=== PATIENT | male | born 1990 | race Caucasian/White ===

== ENCOUNTER 2021-08-18 02:59 | Inpatient (IN) | payer OTHER ==
[2021-08-18 03:29] VITALS: BMI 11.6
[2021-08-18] MEDS ORDERED: ACETAMINOPHEN 1000 MG/100 ML BAG IVPB ONE (03:35)
[2021-08-18] MEDS ORDERED: SODIUM CHLORIDE 0.9% 500 ML INFUS.BAG IV ONE (03:35)
[2021-08-18] MEDS ORDERED: ACETAMINOPHEN INJECTION 100 ML IVPB ONE (03:47)
[2021-08-18 04:09] LABS: HEMOGLOBIN 12.1 GM/dL (11.7-16.9); RBC 4.05 M/mm3 (4.00-5.60); VENOUS BASE EXCESS 3.8 mmol/L (-2-2); VENOUS O2 SATURATION 99.3 % (70-80); VENOUS PCO2 33.7 mmHg (38-52); VENOUS PH 7.514 (7.310-7.410); WHITE BLOOD COUNT 12.3 K/mm3 (4.0-10.0)
[2021-08-18 04:10] LABS: HEMATOCRIT 36.5 % (35.4-49); MCH 29.9 pg (25.7-33.7); MCHC 33.2 g/dl (32.0-35.9); MEAN CELL VOLUME 90.1 fl (80-96); MEAN PLT VOLUME 6.8 fl (7.5-11.1); PLATELET COUNT 219 10^3/uL (134-434); RDW 13.1 % (11.9-15.9)
[2021-08-18 04:18] LABS: INR 1.26 (0.83-1.09); PROTHROMBIN TIME (PATIENT) 14.8 SEC (9.7-13.0)
[2021-08-18 04:20] LABS: ACTIVATED PTT 29.4 SECONDS (25.2-36.5)
[2021-08-18] MEDS ORDERED: PIPERACILLIN/TAZOB 4.5 GM 4.5 GM in DEXTROSE 5%-WATER 100 ML IVPB ONE (04:22)
[2021-08-18] MEDS ORDERED: VANCOMYCIN 1 GM in D5W (PRE-DOCKED) 1,000 MG/250 ML IVPB ONE (04:22)
[2021-08-18 04:36] LABS: PH,URINE 5.5 (5.0-8.0); URINE APPEARANCE CLEAR; URINE BILIRUBIN NEGATIVE (NEGATIVE); URINE COLOR YELLOW; URINE GLUCOSE (UA) NEGATIVE (NEGATIVE); URINE KETONE 4+ (NEGATIVE); URINE LEUK ESTERASE NEGATIVE (NEGATIVE); URINE NITRITE NEGATIVE (NEGATIVE); URINE PROTEIN TRACE (NEGATIVE); URINE UROBILINOGEN 0.2 mg/dL (0.2-1.0)
[2021-08-18 04:37] LABS: CHLORIDE 98 mmol/L (98-107); SODIUM 136 mmol/L (136-145)
[2021-08-18 04:39] LABS: ALBUMIN 3.3 g/dl (3.4-5.0); ANION GAP 13 MMOL/L (8-16); BLOOD UREA NITROGEN 8.7 mg/dL (7-18); CALCIUM 8.9 mg/dL (8.5-10.1); CO2 26 mmol/L (21-32); GLUCOSE,RANDOM 104 mg/dL (74-106)
[2021-08-18 04:42] LABS: BILIRUBIN,DIRECT 0.2 mg/dL (0.0-0.2); SGOT/AST 39 U/L (15-37); SGPT/ALT 23 U/L (13-61)
[2021-08-18 04:43] LABS: BILIRUBIN,TOTAL 0.6 mg/dL (0.2-1); LDH 212 U/L (87-246); TOT PROT 7.6 g/dl (6.4-8.2)
[2021-08-18 04:45] LABS: ALK PHOS 58 U/L (45-117)
[2021-08-18] MEDS ORDERED: POTASSIUM CHLORIDE TABS 20 MEQ TABLET.ER (FP) PO ONE (04:53)
[2021-08-18] MEDS ORDERED: PIPERACILLIN/TAZOB 4.5 GM 4.5 GM/100 ML BAG IVPB ONE (04:55)
[2021-08-18] MEDS ORDERED: VANCOMYCIN 1 GRAM (PRE-DOCKED) 1,000 MG/250 ML BAG IVPB ONE (05:30)
[2021-08-18] MEDS ORDERED: ACETAMINOPHEN 325 MG TABLET (FP) PO PRN (08:02)
[2021-08-18 08:23] LABS: ANISOCYTOSIS 2+; MACROCYTOSIS 0; OVALOCYTE 1+; PLATELET ESTIMATE NORMAL
[2021-08-18] MEDS ORDERED: AZITHROMYCIN IVPB 500 MG/250 ML BAG IVPB ONE (09:16)
[2021-08-18] MEDS ORDERED: ACETAMINOPHEN 325 MG TABLET (FP) ONE (09:16)
[2021-08-18] MEDS ORDERED: CEFTRIAXONE 1 GM/50 ML BAG ONE (09:16)
[2021-08-18 09:36] LABS: CREATININE < 0.2 mg/dL (0.55-1.3)
[2021-08-18] MEDS: CEFTRIAXONE 1 GM in DEXTROSE 5%-WATER - 50 ML IVPB SCH (09:39)
[2021-08-18] MEDS: AZITHROMYCIN IVPB 500 MG/250 ML BAG IVPB SCH (10:06)
[2021-08-18] MEDS ORDERED: DEXAMETHASONE SOD PHOSPHATE 4 MG/1 ML VIAL ONE (10:52)
[2021-08-18] MEDS: DEXAMETHASONE SOD PHOSPHATE 10 MG/1 ML VIAL IVPUSH SCH (10:58)
[2021-08-18 13:25] LABS: MAGNESIUM 1.6 mg/dL (1.8-2.4)
[2021-08-18] MEDS ORDERED: POTASSIUM CHLORIDE ORAL LIQUID 20 MEQ/15 ML PO ONE (14:30)
[2021-08-18] MEDS ORDERED: MAGNESIUM SULF 50% (8.12 MEQ/2 ML-1 GM VIAL) IVPB ONE (14:30)
[2021-08-18] MEDS ORDERED: ENOXAPARIN NA (PORCINE) 30 MG/0.3 ML DISP.SYRIN SQ ONE (14:42)
[2021-08-18] MEDS ORDERED: MAGNESIUM 1GM/D5W - 1 GM/100 ML IVPB IVPB ONE (14:42)
[2021-08-18] MEDS: ENOXAPARIN NA (PORCINE) 30 MG/0.3 ML DISP.SYRIN SQ SCH (14:56)
[2021-08-18] MEDS ORDERED: REMDESIVIR 200 MG in SODIUM CHLORIDE 250 ML IVPB ONE (15:00)
[2021-08-18] MEDS ORDERED: POTASSIUM CHLORIDE ORAL LIQUID 20 MEQ/15 ML ONE (15:21)
[2021-08-18] MEDS ORDERED: KCL 10 MEQ IVPB 10 MEQ/100 ML INFUS.BAG IVPB ONE ×2 (16:35→17:51)
[2021-08-18] MEDS: KCL 10 MEQ IVPB 10 MEQ/100 ML INFUS.BAG IVPB SCH ×3 (16:50→20:36)
[2021-08-19] MEDS ORDERED: DEXTROSE 5%-WATER - 50 ML IVPB ONE (09:17)
[2021-08-19] MEDS ORDERED: cefTRIAXone SODIUM 1 GM VIAL ONE (09:17)
[2021-08-19] MEDS: DEXAMETHASONE SOD PHOSPHATE 10 MG/1 ML VIAL IVPUSH SCH (09:23)
[2021-08-19] MEDS: PANTOPRAZOLE 40 MG TABLET PO SCH (09:24)
[2021-08-19] MEDS: ENOXAPARIN NA (PORCINE) 30 MG/0.3 ML DISP.SYRIN SQ SCH (09:24)
[2021-08-19] MEDS: CEFTRIAXONE 1 GM in DEXTROSE 5%-WATER - 50 ML IVPB SCH (09:24)
[2021-08-19] MEDS: AZITHROMYCIN IVPB 500 MG/250 ML BAG IVPB SCH (10:24)
[2021-08-19 11:10] LABS: CHLORIDE 101 mmol/L (98-107); SODIUM 138 mmol/L (136-145)
[2021-08-19 11:11] LABS: HEMATOCRIT 38.3 % (35.4-49); HEMOGLOBIN 12.2 GM/dL (11.7-16.9); LYMPH % 12.3 % (8-40); MCH 29.2 pg (25.7-33.7); MEAN CELL VOLUME 91.3 fl (80-96); MEAN PLT VOLUME 7.3 fl (7.5-11.1); MONO % 6.8 % (3.8-10.2); NEUT % 80.9 % (42.8-82.8); PLATELET COUNT 316 10^3/uL (134-434); RBC 4.19 M/mm3 (4.00-5.60); RDW 13.8 % (11.9-15.9); WHITE BLOOD COUNT 9.4 K/mm3 (4.0-10.0)
[2021-08-19 11:13] LABS: ALBUMIN 2.8 g/dl (3.4-5.0); ANION GAP 11 MMOL/L (8-16); BLOOD UREA NITROGEN 12.1 mg/dL (7-18); CALCIUM 8.9 mg/dL (8.5-10.1); CO2 26 mmol/L (21-32); GLUCOSE,RANDOM 122 mg/dL (74-106)
[2021-08-19 11:16] LABS: SGOT/AST 56 U/L (15-37); SGPT/ALT 39 U/L (13-61)
[2021-08-19 11:18] LABS: BILIRUBIN,TOTAL 0.3 mg/dL (0.2-1); LDH 219 U/L (87-246)
[2021-08-19 11:19] LABS: ALK PHOS 56 U/L (45-117)
[2021-08-19 11:26] LABS: CREATININE < 0.2 mg/dL (0.55-1.3)
[2021-08-19] MEDS ORDERED: REMDESIVIR 100 MG in SODIUM CHLORIDE 250 ML IVPB SCH (15:00)
[2021-08-20 09:06] LABS: HEMATOCRIT 37.3 % (35.4-49); HEMOGLOBIN 12.1 GM/dL (11.7-16.9); LYMPH % 17.6 % (8-40); MCH 29.6 pg (25.7-33.7); MCHC 32.5 g/dl (32.0-35.9); MEAN CELL VOLUME 91.1 fl (80-96); MEAN PLT VOLUME 7.1 fl (7.5-11.1); MONO % 10.4 % (3.8-10.2); PLATELET COUNT 299 10^3/uL (134-434); RBC 4.09 M/mm3 (4.00-5.60); RDW 13.7 % (11.9-15.9); WHITE BLOOD COUNT 6.2 K/mm3 (4.0-10.0)
[2021-08-20 09:17] LABS: CHLORIDE 101 mmol/L (98-107); SODIUM 138 mmol/L (136-145)
[2021-08-20 09:21] LABS: ALBUMIN 2.9 g/dl (3.4-5.0); ANION GAP 10 MMOL/L (8-16); BLOOD UREA NITROGEN 15.6 mg/dL (7-18); CO2 28 mmol/L (21-32); GLUCOSE,RANDOM 80 mg/dL (74-106)
[2021-08-20 09:24] LABS: SGOT/AST 28 U/L (15-37); SGPT/ALT 30 U/L (13-61)
[2021-08-20 09:26] LABS: BILIRUBIN,TOTAL 0.3 mg/dL (0.2-1); TOT PROT 6.6 g/dl (6.4-8.2)
[2021-08-20 09:27] LABS: ALK PHOS 49 U/L (45-117)
[2021-08-20 09:30] LABS: LDH 190 U/L (87-246)
[2021-08-20 09:43] LABS: CREATININE < 0.2 mg/dL (0.55-1.3)
[2021-08-20] MEDS ORDERED: cefTRIAXone SODIUM 1 GM VIAL ONE (09:47)
[2021-08-20] MEDS ORDERED: DEXTROSE 5%-WATER - 50 ML IVPB ONE (09:47)
[2021-08-20] MEDS: ENOXAPARIN NA (PORCINE) 30 MG/0.3 ML DISP.SYRIN SQ SCH (09:49)
[2021-08-20] MEDS: CEFTRIAXONE 1 GM in DEXTROSE 5%-WATER - 50 ML IVPB SCH (09:49)
[2021-08-20] MEDS: DEXAMETHASONE SOD PHOSPHATE 10 MG/1 ML VIAL IVPUSH SCH (09:50)
[2021-08-20] MEDS: PANTOPRAZOLE 40 MG TABLET PO SCH (10:09)
[2021-08-20] MEDS: REMDESIVIR 100 MG in SODIUM CHLORIDE 250 ML IVPB SCH (10:22)
[2021-08-20] MEDS: AZITHROMYCIN IVPB 500 MG/250 ML BAG IVPB SCH (11:33)
[2021-08-21 10:03] LABS: HEMATOCRIT 42.8 % (35.4-49); HEMOGLOBIN 14.2 GM/dL (11.7-16.9); MCH 30.1 pg (25.7-33.7); MCHC 33.2 g/dl (32.0-35.9); MEAN CELL VOLUME 90.8 fl (80-96); MEAN PLT VOLUME 7.1 fl (7.5-11.1); PLATELET COUNT 377 10^3/uL (134-434); RBC 4.71 M/mm3 (4.00-5.60); RDW 13.7 % (11.9-15.9)
[2021-08-21 10:19] LABS: CHLORIDE 99 mmol/L (98-107); SODIUM 138 mmol/L (136-145)
[2021-08-21] MEDS ORDERED: cefTRIAXone SODIUM 1 GM VIAL ONE (10:21)
[2021-08-21] MEDS ORDERED: DEXTROSE 5%-WATER - 50 ML IVPB ONE (10:21)
[2021-08-21] MEDS: DEXAMETHASONE SOD PHOSPHATE 10 MG/1 ML VIAL IVPUSH SCH (10:24)
[2021-08-21] MEDS: CEFTRIAXONE 1 GM in DEXTROSE 5%-WATER - 50 ML IVPB SCH (10:24)
[2021-08-21 10:25] LABS: ALBUMIN 3.4 g/dl (3.4-5.0); ANION GAP 10 MMOL/L (8-16); BLOOD UREA NITROGEN 15.2 mg/dL (7-18); CALCIUM 9.2 mg/dL (8.5-10.1); CO2 29 mmol/L (21-32); MAGNESIUM 1.9 mg/dL (1.8-2.4)
[2021-08-21] MEDS: ENOXAPARIN NA (PORCINE) 30 MG/0.3 ML DISP.SYRIN SQ SCH (10:25)
[2021-08-21 10:26] LABS: GLUCOSE,RANDOM 106 mg/dL (74-106)
[2021-08-21] MEDS: PANTOPRAZOLE 40 MG TABLET PO SCH (10:27)
[2021-08-21 10:29] LABS: BILIRUBIN,TOTAL 0.3 mg/dL (0.2-1); SGOT/AST 28 U/L (15-37); SGPT/ALT 33 U/L (13-61); TOT PROT 7.6 g/dl (6.4-8.2)
[2021-08-21 10:30] LABS: ALK PHOS 58 U/L (45-117)
[2021-08-21 10:32] LABS: LDH 227 U/L (87-246)
[2021-08-21 11:18] LABS: ANISOCYTOSIS 0; MACROCYTOSIS 0; PLATELET ESTIMATE NORMAL; ROULEAU 1+
[2021-08-21] MEDS: AZITHROMYCIN IVPB 500 MG/250 ML BAG IVPB SCH (11:43)
[2021-08-21] MEDS: REMDESIVIR 100 MG in SODIUM CHLORIDE 250 ML IVPB SCH (13:25)
[2021-08-21 14:44] LABS: CREATININE < 0.2 mg/dL (0.55-1.3)
[2021-08-21] MEDS ORDERED: POTASSIUM CHLORIDE TABS 20 MEQ TABLET.ER (FP) PO ONE (16:57)
[2021-08-22] MEDS ORDERED: PT OWN MED DRAWER 7, Y5N ONE (08:03)
[2021-08-22] MEDS: REMDESIVIR 100 MG in SODIUM CHLORIDE 250 ML IVPB SCH (09:30)
[2021-08-22] MEDS: PANTOPRAZOLE 40 MG TABLET PO SCH (09:32)
[2021-08-22 09:37] LABS: HEMATOCRIT 34.8 % (35.4-49); HEMOGLOBIN 11.4 GM/dL (11.7-16.9); LYMPH % 27.7 % (8-40); MCH 29.8 pg (25.7-33.7); MCHC 32.9 g/dl (32.0-35.9); MEAN CELL VOLUME 90.7 fl (80-96); MEAN PLT VOLUME 7.1 fl (7.5-11.1); MONO % 18.2 % (3.8-10.2); NEUT % 54.1 % (42.8-82.8); PLATELET COUNT 288 10^3/uL (134-434); RBC 3.84 M/mm3 (4.00-5.60); RDW 13.4 % (11.9-15.9); WHITE BLOOD COUNT 3.6 K/mm3 (4.0-10.0)
[2021-08-22 10:00] LABS: CHLORIDE 103 mmol/L (98-107); SODIUM 140 mmol/L (136-145)
[2021-08-22] MEDS ORDERED: APIXABAN 2.5 MG TABLET PO SCH (10:00)
[2021-08-22] MEDS ORDERED: DEXAMETHASONE 4 MG TABLET (FP) PO SCH (10:00)
[2021-08-22 10:09] LABS: ANION GAP 9 MMOL/L (8-16); BLOOD UREA NITROGEN 16.5 mg/dL (7-18); CO2 28 mmol/L (21-32); GLUCOSE,RANDOM 71 mg/dL (74-106); MAGNESIUM 1.6 mg/dL (1.8-2.4)
[2021-08-22 10:11] LABS: CALCIUM 8.4 mg/dL (8.5-10.1)
[2021-08-22 10:12] LABS: SGPT/ALT 27 U/L (13-61)
[2021-08-22 10:13] LABS: SGOT/AST 21 U/L (15-37)
[2021-08-22 10:14] LABS: BILIRUBIN,TOTAL 0.4 mg/dL (0.2-1); LDH 170 U/L (87-246); TOT PROT 6.1 g/dl (6.4-8.2)
[2021-08-22 10:15] LABS: ALK PHOS 45 U/L (45-117)
[2021-08-22 10:35] LABS: ALBUMIN 2.5 g/dl (3.4-5.0); CREATININE < 0.2 mg/dL (0.55-1.3)
[2021-08-22] MEDS ORDERED: cefTRIAXone SODIUM 1 GM VIAL ONE (10:39)
[2021-08-22] MEDS ORDERED: DEXTROSE 5%-WATER - 50 ML IVPB ONE (10:39)
[2021-08-22] MEDS: CEFTRIAXONE 1 GM in DEXTROSE 5%-WATER - 50 ML IVPB SCH (10:41)
[2021-08-22 10:51] VITALS: BP 99/45; PULSE 63; TEMP 97.9
[2021-08-22] MEDS: AZITHROMYCIN IVPB 500 MG/250 ML BAG IVPB SCH (11:16)
== END 2021-08-22 14:35 | disposition home or self-care (01) | DRG 137 ==
LOC: JER 02:59 → INTOOBSV 05:30 → JERBED 05:30 → UNDOADMOB 05:30 → JERBED 08:02 → UNDOADMOB 08:02 → OBSVTOIN 11:07 → JERBED 11:07 → INTOOBSV 11:07 → J8W 19:06
PROVIDERS: ADMIT Internal Medicine; ATTEND Nurse Practitioner Acute Care
PROC: XW033E5 Introduction of Remdesivir Anti-infective into Peripheral Vein, Percutaneous Approach, New Technology Group 5 (ICD-10-PCS; principal; 2021-08-18)
DX: U07.1 COVID-19 (principal); E87.3 Alkalosis; E87.6 Hypokalemia; G71.01 Duchenne or Becker muscular dystrophy; J12.82 Pneumonia due to coronavirus disease 2019; M41.9 Scoliosis, unspecified; J96.20 Acute and chronic respiratory failure, unspecified whether with hypoxia or hypercapnia; R53.2 Functional quadriplegia
CPT/HCPCS: 36415; 71045-TC-FY; 80053; 81003; 82248; 82550; 82553; 82728; 82803; 83605; 83615; 83735; 84132; 84484; 85025; 85379; 85610; 85730; 86140; 87040; 87086; 87804; 87807; 87899; 93005; 93010; 99285-25; C9399; C9803; J0131; J1100; U0003; U0005

== ENCOUNTER 2021-08-25 18:13 | Emergency (ER) | payer OTHER ==
[2021-08-25 18:30] VITALS: TEMP 96.9; BMI 11.6
[2021-08-25 18:59] VITALS: BP 105/81; PULSE 64
[2021-08-25] MEDS ORDERED: GLUCAGON 1 MG KIT IM ONE (19:26)
[2021-08-25] MEDS ORDERED: GLUCAGON 1 MG KIT ONE (19:39)
== END 2021-08-25 21:42 | disposition home or self-care (01) ==
LOC: JER 18:13
PROC: 3E023NZ Introduction of Analgesics, Hypnotics, Sedatives into Muscle, Percutaneous Approach (ICD-10-PCS; principal; 2021-08-25)
DX: R09.89 Other specified symptoms and signs involving the circulatory and respiratory systems (principal)
CPT/HCPCS: 71250-TC; 99284-25

== ENCOUNTER 2023-06-24 11:20 | Inpatient (IN) | payer OTHER ==
[2023-06-24 11:39] VITALS: BMI 11.6
[2023-06-24] MEDS ORDERED: SODIUM CHLORIDE 0.9% 500 ML INFUS.BAG IV ONE (15:11)
[2023-06-24 15:38] LABS: BASO % 0.3 % (0-2.0); EOS % 0.1 % (0-4.5); HEMATOCRIT 43.8 % (35.4-49); HEMOGLOBIN 14.4 GM/dL (11.7-16.9); LYMPH % 14.7 % (8-40); MCH 29.4 pg (25.7-33.7); MCHC 32.9 g/dl (32.0-35.9); MEAN CELL VOLUME 89.3 fl (80-96); MEAN PLT VOLUME 6.9 fl (7.5-11.1); MONO % 8.4 % (3.8-10.2); NEUT % 76.5 % (42.8-82.8); PLATELET COUNT 273 10^3/uL (134-434); RBC 4.91 M/mm3 (4.00-5.60); RDW 13.7 % (11.9-15.9); WHITE BLOOD COUNT 13.5 K/mm3 (4.0-10.0)
[2023-06-24 16:56] LABS: ALBUMIN 3.8 g/dl (3.4-5.0); ALK PHOS 50 U/L (45-117); ANION GAP 15 mmol/L (4-13); BILIRUBIN,TOTAL 0.8 mg/dL (0.2-1); BLOOD UREA NITROGEN 17.1 mg/dL (7-18); CALCIUM 9.3 mg/dL (8.5-10.1); CHLORIDE 100 mmol/L (98-107); CO2 23 mmol/L (21-32); CREATININE < 0.2 mg/dL (0.55-1.3); GLUCOSE,RANDOM 68 mg/dL (74-106); POTASSIUM 3.6 mmol/L (3.5-5.1); SGOT/AST 31 U/L (15-37); SGPT/ALT 15 U/L (13-61); SODIUM 137 mmol/L (136-145); TOT PROT 7.8 g/dl (6.4-8.2)
[2023-06-24] MEDS ORDERED: DEXTROSE 50%-WATER 25 GM/50 ML DISP.SYRIN IVPUSH ONE (17:14)
[2023-06-24] MEDS ORDERED: DEXTROSE 50%-WATER 25 GM/50 ML DISP.SYRIN ONE ×2 (17:35→17:50)
[2023-06-24] MEDS ORDERED: CEFTRIAXONE 1 GM/50 ML BAG ONE (19:14)
[2023-06-24] MEDS ORDERED: predniSONE 10 MG TABLET (UD) PO ONE (19:20)
[2023-06-24] MEDS ORDERED: predniSONE 10 MG TABLET (UD) ONE (19:26)
[2023-06-24 19:32] LABS: PH,URINE 6.5 (5.0-8.0); URINE APPEARANCE CLEAR; URINE BILIRUBIN NEGATIVE (NEGATIVE); URINE COLOR YELLOW; URINE GLUCOSE (UA) 3+ (NEGATIVE); URINE KETONE 4+ (NEGATIVE); URINE LEUK ESTERASE NEGATIVE (NEGATIVE); URINE NITRITE NEGATIVE (NEGATIVE); URINE PROTEIN NEGATIVE (NEGATIVE); URINE UROBILINOGEN 0.2 mg/dL (0.2-1.0)
[2023-06-24] MEDS ORDERED: DEXTROSE 5%-NORMAL SALINE 1,000 ML IV SCH (23:30)
[2023-06-25 04:58] VITALS: RESP 20
[2023-06-25] MEDS: PANTOPRAZOLE 40 MG TABLET PO SCH (06:02)
[2023-06-25] MEDS ORDERED: DEXTROSE 5%-NORMAL SALINE 1,000 ML IV SCH (10:30)
[2023-06-25 10:51] LABS: BASO % 0.1 % (0-2.0); HEMATOCRIT 39.1 % (35.4-49); HEMOGLOBIN 12.8 GM/dL (11.7-16.9); LYMPH % 9.5 % (8-40); MCH 29.1 pg (25.7-33.7); MCHC 32.8 g/dl (32.0-35.9); MEAN CELL VOLUME 88.8 fl (80-96); MEAN PLT VOLUME 6.5 fl (7.5-11.1); MONO % 10.4 % (3.8-10.2); PLATELET COUNT 257 10^3/uL (134-434); RDW 13.6 % (11.9-15.9); WHITE BLOOD COUNT 12.9 K/mm3 (4.0-10.0)
[2023-06-25 11:09] LABS: POTASSIUM 3.1 mmol/L (3.5-5.1)
[2023-06-25] MEDS: CEFTRIAXONE 1 GM in DEXTROSE 5%-WATER - 50 ML IVPB SCH (11:10)
[2023-06-25] MEDS: AZITHROMYCIN IVPB 500 MG/250 ML BAG IVPB SCH (11:10)
[2023-06-25] MEDS: ENOXAPARIN NA (PORCINE) 40 MG/0.4 ML DISP.SYRIN SQ SCH (11:10)
[2023-06-25 11:11] LABS: CALCIUM 8.8 mg/dL (8.5-10.1)
[2023-06-25] MEDS: CARVEDILOL 3.125 MG TABLET (FP) PO SCH ×2 (11:11→21:39)
[2023-06-25] MEDS: predniSONE 5 MG TABLET (UD) PO SCH (11:11)
[2023-06-25] MEDS: LOSARTAN POTASSIUM 25 MG TABLET PO SCH (11:11)
[2023-06-25 11:12] LABS: ALBUMIN 3.2 g/dl (3.4-5.0); MAGNESIUM 1.7 mg/dL (1.8-2.4)
[2023-06-25] MEDS: LORATADINE 10 MG TABLET PO SCH (11:12)
[2023-06-25 11:15] LABS: PHOSPHOROUS 2.6 mg/dL (2.5-4.9)
[2023-06-25 11:16] LABS: TOT PROT 6.6 g/dl (6.4-8.2)
[2023-06-25 11:17] LABS: BILIRUBIN,TOTAL 0.6 mg/dL (0.2-1)
[2023-06-25 12:04] LABS: CREATININE 0.2 mg/dL (0.55-1.3)
[2023-06-25] MEDS: KCL 10 MEQ IVPB 10 MEQ/100 ML INFUS.BAG IVPB SCH ×2 (13:23→14:28)
[2023-06-26] MEDS: PANTOPRAZOLE 40 MG TABLET PO SCH (06:47)
[2023-06-26] MEDS ORDERED: predniSONE 10 MG TABLET (UD) PO SCH (10:00)
[2023-06-26] MEDS ORDERED: ACETAMINOPHEN 1000 MG/100 ML BAG IVPB PRN (10:35)
[2023-06-26] MEDS: LOSARTAN POTASSIUM 25 MG TABLET PO SCH (12:37)
[2023-06-26] MEDS: CARVEDILOL 3.125 MG TABLET (FP) PO SCH (12:37)
[2023-06-26] MEDS: LORATADINE 10 MG TABLET PO SCH (12:37)
[2023-06-26] MEDS: CEFTRIAXONE 1 GM in DEXTROSE 5%-WATER - 50 ML IVPB SCH (12:38)
[2023-06-26] MEDS: ENOXAPARIN NA (PORCINE) 40 MG/0.4 ML DISP.SYRIN SQ SCH (12:38)
[2023-06-26] MEDS: AZITHROMYCIN IVPB 500 MG/250 ML BAG IVPB SCH (12:38)
[2023-06-26 12:48] LABS: HEMOGLOBIN 11.7 GM/dL (11.7-16.9); MCH 29.9 pg (25.7-33.7); MCHC 33.3 g/dl (32.0-35.9); MEAN CELL VOLUME 89.7 fl (80-96); MEAN PLT VOLUME 7.2 fl (7.5-11.1); PLATELET COUNT 271 10^3/uL (134-434); RDW 13.9 % (11.9-15.9); WHITE BLOOD COUNT 10.4 K/mm3 (4.0-10.0)
[2023-06-26 13:09] LABS: CHLORIDE 100 mmol/L (98-107); POTASSIUM 3.8 mmol/L (3.5-5.1); SODIUM 132 mmol/L (136-145)
[2023-06-26 13:11] LABS: ANION GAP 7 mmol/L (4-13); CALCIUM 8.6 mg/dL (8.5-10.1); CO2 26 mmol/L (21-32)
[2023-06-26 13:12] LABS: BLOOD UREA NITROGEN 7.4 mg/dL (7-18); GLUCOSE,RANDOM 72 mg/dL (74-106); MAGNESIUM 1.6 mg/dL (1.8-2.4)
[2023-06-26 13:57] LABS: CREATININE < 0.2 mg/dL (0.55-1.3)
[2023-06-26] MEDS: CARVEDILOL 6.25 MG TABLET (FP) PO SCH (21:12)
[2023-06-27] MEDS: PANTOPRAZOLE 40 MG TABLET PO SCH (06:25)
[2023-06-27] MEDS: CEFTRIAXONE 1 GM in DEXTROSE 5%-WATER - 50 ML IVPB SCH (09:53)
[2023-06-27] MEDS: AZITHROMYCIN IVPB 500 MG/250 ML BAG IVPB SCH (09:53)
[2023-06-27] MEDS: CARVEDILOL 6.25 MG TABLET (FP) PO SCH (09:54)
[2023-06-27] MEDS: predniSONE 5 MG TABLET (UD) PO SCH (09:54)
[2023-06-27] MEDS: LORATADINE 10 MG TABLET PO SCH (09:54)
[2023-06-27] MEDS: ENOXAPARIN NA (PORCINE) 40 MG/0.4 ML DISP.SYRIN SQ SCH ×2 (09:54→10:00)
[2023-06-27] MEDS: LOSARTAN POTASSIUM 25 MG TABLET PO SCH (09:54)
[2023-06-27 10:11] VITALS: BP 116/68; PULSE 89; TEMP 97.4
== END 2023-06-27 11:12 | disposition home health service (06) | DRG 139 ==
LOC: JER 11:20 → JERBED 17:13 → J7W 06-25 04:24
PROVIDERS: ADMIT Internal Medicine; ATTEND Internal Medicine
DX: J18.9 Pneumonia, unspecified organism (principal); E16.2 Hypoglycemia, unspecified; G80.9 Cerebral palsy, unspecified; E43 Unspecified severe protein-calorie malnutrition; M41.9 Scoliosis, unspecified; Z68.1 Body mass index [BMI] 19.9 or less, adult; R53.2 Functional quadriplegia; Z86.16 Personal history of COVID-19; Z74.01 Bed confinement status; D72.829 Elevated white blood cell count, unspecified; G71.01 Duchenne or Becker muscular dystrophy
CPT/HCPCS: 0241U-QW; 36415; 71045-TC-FY; 71250-TC; 80048; 80053; 81003; 83735; 84100; 85025; 85027; 87040; 87086; 93005; 93010; 99285-25

== ENCOUNTER 2024-02-15 11:30 | Emergency (ER) | payer OTHER ==
[2024-02-15] MEDS ORDERED: DEXTROSE 50%-WATER 25 GM/50 ML DISP.SYRIN ONE (11:44)
[2024-02-15] MEDS: DEXTROSE 50%-WATER 25 GM/50 ML DISP.SYRIN IVPUSH ONE (11:53)
[2024-02-15 12:00] VITALS: BMI 17.6
[2024-02-15 12:46] LABS: EPI CELLS 5 /uL (0-25.1); HYALINE CASTS 0 /uL (0-3.1); URINE APPEARANCE CLEAR; URINE BACTERIA 4 /uL (0-1359); URINE BILIRUBIN NEGATIVE (NEGATIVE); URINE COLOR YELLOW; URINE GLUCOSE (UA) 3+ (NEGATIVE); URINE KETONE 4+ (NEGATIVE); URINE LEUK ESTERASE NEGATIVE (NEGATIVE); URINE NITRITE NEGATIVE (NEGATIVE); URINE PROTEIN 1+ (NEGATIVE); URINE RBC 184 /uL (0-23.9); URINE UROBILINOGEN 0.2 mg/dL (0.2-1.0); URINE WBC 7 /uL (0-25.8)
[2024-02-15 14:34] LABS: BASO % 0.8 % (0-2.0); EOS % 0.3 % (0-4.5); HEMATOCRIT 39.6 % (35.4-49); HEMOGLOBIN 13.1 GM/dL (11.7-16.9); LYMPH % 24.7 % (8-40); MCHC 33.1 g/dl (32.0-35.9); MEAN CELL VOLUME 90.4 fl (80-96); MEAN PLT VOLUME 6.3 fl (7.5-11.1); MONO % 9.5 % (3.8-10.2); NEUT % 64.7 % (42.8-82.8); PLATELET COUNT 294 10^3/uL (134-434); RBC 4.38 M/mm3 (4.00-5.60); RDW 13.8 % (11.9-15.9); WHITE BLOOD COUNT 8.4 K/mm3 (4.0-10.0)
[2024-02-15] MEDS: LACTATED RINGERS SOLUTION 1,000 ML/1,000 ML INFUS.BAG IV STA (14:45)
[2024-02-15 15:10] LABS: CHLORIDE 107 mmol/L (98-107); POTASSIUM 3.1 mmol/L (3.5-5.1); SODIUM 138 mmol/L (136-145)
[2024-02-15 15:12] LABS: CALCIUM 7.6 mg/dL (8.5-10.1)
[2024-02-15 15:13] LABS: ALBUMIN 2.8 g/dl (3.4-5.0); ANION GAP 13 mmol/L (4-13); BLOOD UREA NITROGEN 12.3 mg/dL (7-18); CO2 19 mmol/L (21-32); GLUCOSE,RANDOM 201 mg/dL (74-106)
[2024-02-15 15:16] LABS: CREATININE < 0.2 mg/dL (0.55-1.3); SGOT/AST 23 U/L (15-37); SGPT/ALT 13 U/L (13-61)
[2024-02-15 15:17] LABS: BILIRUBIN,TOTAL 0.5 mg/dL (0.2-1); TOT PROT 6.2 g/dl (6.4-8.2)
[2024-02-15 15:19] LABS: ALK PHOS 44 U/L (45-117)
[2024-02-15] MEDS ORDERED: POTASSIUM CHLORIDE ORAL LIQUID 20 MEQ/15 ML ONE (16:27)
[2024-02-15] MEDS: POTASSIUM CHLORIDE ORAL LIQUID 20 MEQ/15 ML PO ONE (16:35)
[2024-02-15 16:51] VITALS: BP 139/90; PULSE 75; RESP 20
== END 2024-02-15 16:48 | disposition home or self-care (01) ==
LOC: JER 11:30
PROC: 3E0337Z Introduction of Electrolytic and Water Balance Substance into Peripheral Vein, Percutaneous Approach (ICD-10-PCS; principal; 2024-02-15)
DX: R07.89 Other chest pain (principal); R05.9 Cough, unspecified; R06.02 Shortness of breath; R63.0 Anorexia; Z20.822 Contact with and (suspected) exposure to COVID-19
CPT/HCPCS: 0241U-QW; 36415; 71045-TC-FY; 80053; 81003; 82962; 84484; 85025; 87086; 93005; 93010; 99285-25

== ENCOUNTER 2024-02-23 17:44 | Inpatient (IN) | payer OTHER ==
[2024-02-23] MEDS: SODIUM CHLORIDE 0.9% 500 ML INFUS.BAG IV ONE (19:43)
[2024-02-23 19:49] LABS: BASO % 0.2 % (0-2.0); EOS % 0.1 % (0-4.5); HEMATOCRIT 39.1 % (35.4-49); HEMOGLOBIN 12.9 GM/dL (11.7-16.9); LYMPH % 5.4 % (8-40); MCH 29.9 pg (25.7-33.7); MCHC 33.1 g/dl (32.0-35.9); MEAN CELL VOLUME 90.3 fl (80-96); MEAN PLT VOLUME 6.6 fl (7.5-11.1); MONO % 7.2 % (3.8-10.2); NEUT % 87.1 % (42.8-82.8); PLATELET COUNT 264 10^3/uL (134-434); RBC 4.33 M/mm3 (4.00-5.60); WHITE BLOOD COUNT 10.4 K/mm3 (4.0-10.0)
[2024-02-23 19:59] LABS: CHLORIDE 98 mmol/L (98-107); POTASSIUM 3.8 mmol/L (3.5-5.1); SODIUM 136 mmol/L (136-145)
[2024-02-23 20:05] LABS: ALBUMIN 3.4 g/dl (3.4-5.0); ANION GAP 11 mmol/L (4-13); BLOOD UREA NITROGEN 11.8 mg/dL (7-18); CO2 27 mmol/L (21-32); GLUCOSE,RANDOM 50 mg/dL (74-106)
[2024-02-23 20:08] LABS: SGOT/AST 22 U/L (15-37); SGPT/ALT 11 U/L (13-61)
[2024-02-23 20:09] LABS: BILIRUBIN,TOTAL 0.8 mg/dL (0.2-1)
[2024-02-23 20:10] LABS: ALK PHOS 48 U/L (45-117); CALCIUM 9.3 mg/dL (8.5-10.1)
[2024-02-23] MEDS ORDERED: DEXTROSE 50%-WATER 25 GM/50 ML DISP.SYRIN ONE (20:13)
[2024-02-23] MEDS: DEXTROSE 50%-WATER - 25 GM/50 ML VIAL IVPUSH ONE (20:28)
[2024-02-23 20:34] LABS: CREATININE < 0.6 mg/dL (0.55-1.3)
[2024-02-23] MEDS ORDERED: ACETAMINOPHEN INJECTION 100 ML IVPB ONE (22:29)
[2024-02-23] MEDS: ACETAMINOPHEN 1000 MG/100 ML BAG IVPB ONE ×2 (22:48→22:49)
[2024-02-24] MEDS: SODIUM CHLORIDE 0.9% 500 ML INFUS.BAG IV ONE (00:20)
[2024-02-24] MEDS ORDERED: ASPIRIN 81 MG CHEWABLE TABLETS ONE ×2 (00:29→11:36)
[2024-02-24] MEDS: ASPIRIN 81 MG CHEWABLE TABLETS PO ONE (00:49)
[2024-02-24] MEDS: ASPIRIN 300 MG SUPP.RECT RC ONE (01:07)
[2024-02-24] MEDS ORDERED: HEPARIN NA (PORCINE) 5,000 UNITS/ML 1ML VIAL IVPUSH PRN ×2 (02:35)
[2024-02-24] MEDS ORDERED: HEPARIN INFUSION - 25,000 UNITS/500 ML INFUS.BAG IVPB ONE (02:47)
[2024-02-24] MEDS ORDERED: ALBUTEROL SO4 2.5/IPRATROPIUM 0.5 INH SOL 3 ML VIAL.NEB. NEB PRN ×2 (02:53→03:40)
[2024-02-24] MEDS ORDERED: PIPERACILLIN/TAZOB 4.5 GM 4.5 GM/100 ML BAG IVPB ONE ×3 (02:53→14:21)
[2024-02-24] MEDS: HEPARIN - 25,000 UNIT in SODIUM CHLORIDE 495 ML IV SCH (04:17)
[2024-02-24] MEDS: ATORVASTATIN CA 40 MG TABLET (FP) PO ONE (05:07)
[2024-02-24] MEDS: ENOXAPARIN NA (PORCINE) 40 MG/0.4 ML DISP.SYRIN SQ ONE (05:07)
[2024-02-24] MEDS: PIPERACILLIN/TAZOB 4.5 GM 4.5 GM in DEXTROSE 5%-WATER 100 ML IVPB SCH ×2 (05:29→08:20)
[2024-02-24] MEDS ORDERED: ALBUTEROL SO4 2.5/IPRATROPIUM 0.5 INH SOL 3 ML VIAL.NEB. NEB SCH (06:02)
[2024-02-24 06:22] LABS: ARTERIAL BLD GAS O2 SATURATION 95.3 % (95-98); ARTERIAL BLOOD GAS PO2 82.1 mmHg (80-100)
[2024-02-24 06:39] LABS: ALLENS TEST POSITIVE
[2024-02-24 06:40] LABS: VENT MODE S/T AVAPS; VENT RATE 24
[2024-02-24] MEDS ORDERED: methylPREDNISolone NA SUCC 40 MG/1 ML VIAL ONE (08:00)
[2024-02-24] MEDS: methylPREDNISolone NA SUCC 40 MG/1 ML VIAL IVPUSH SCH (08:15)
[2024-02-24] MEDS ORDERED: ACETYLCYSTEINE 20% 200MG/ML 4 ML VIAL *FOR ORAL / INH USE ONLY ONE ×2 (08:27→14:20)
[2024-02-24] MEDS ORDERED: ALBUTEROL SO4 0.083% IH SOL 2.5 MG/3 ML VIAL.NEB. NEB ONE ×2 (08:27→14:20)
[2024-02-24] MEDS: ALBUTEROL SO4 0.083% IH SOL 2.5 MG/3 ML VIAL.NEB. NEB SCH (08:36)
[2024-02-24] MEDS ORDERED: PANTOPRAZOLE 40 MG TABLET PO SCH (10:00)
[2024-02-24] MEDS ORDERED: PANTOPRAZOLE 20 MG TABLET PO SCH (10:00)
[2024-02-24] MEDS ORDERED: predniSONE 5 MG TABLET (UD) PO SCH (10:00)
[2024-02-24] MEDS ORDERED: ENOXAPARIN NA (PORCINE) 40 MG/0.4 ML DISP.SYRIN SQ SCH (10:00)
[2024-02-24 11:05] LABS: N-TERMINAL BNP 214.6 pg/ml (5-125)
[2024-02-24 11:26] LABS: HEMOGLOBIN 13.3 GM/dL (11.7-16.9); MCH 29.4 pg (25.7-33.7); MCHC 32.4 g/dl (32.0-35.9); MEAN CELL VOLUME 90.7 fl (80-96); MEAN PLT VOLUME 6.7 fl (7.5-11.1); PLATELET COUNT 383 10^3/uL (134-434); RBC 4.52 M/mm3 (4.00-5.60); RDW 13.9 % (11.9-15.9); WHITE BLOOD COUNT 14.7 K/mm3 (4.0-10.0)
[2024-02-24] MEDS ORDERED: PANTOPRAZOLE 40 MG TABLET PO ONE (11:35)
[2024-02-24] MEDS ORDERED: LOSARTAN POTASSIUM 25 MG TABLET ONE (11:35)
[2024-02-24] MEDS ORDERED: METOPROLOL TARTRATE 50 MG TABLET (FP) ONE (11:36)
[2024-02-24] MEDS ORDERED: PANTOPRAZOLE 20 MG TABLET PO ONE (11:36)
[2024-02-24] MEDS ORDERED: LORATADINE 10 MG TABLET ONE (11:36)
[2024-02-24] MEDS ORDERED: CARVEDILOL 3.125 MG TABLET (FP) ONE (11:37)
[2024-02-24] MEDS: LORATADINE 10 MG TABLET PO SCH (11:40)
[2024-02-24] MEDS: ASPIRIN 81 MG CHEWABLE TABLETS PO SCH (11:40)
[2024-02-24 11:45] LABS: CHLORIDE 100 mmol/L (98-107); POTASSIUM 3.1 mmol/L (3.5-5.1); SODIUM 135 mmol/L (136-145)
[2024-02-24 11:47] LABS: ALBUMIN 2.9 g/dl (3.4-5.0); ANION GAP 11 mmol/L (4-13); BLOOD UREA NITROGEN 10.2 mg/dL (7-18); CALCIUM 8.9 mg/dL (8.5-10.1); CO2 24 mmol/L (21-32); GLUCOSE,RANDOM 164 mg/dL (74-106); MAGNESIUM 1.5 mg/dL (1.8-2.4)
[2024-02-24 11:50] LABS: CREATININE < 0.2 mg/dL (0.55-1.3); PHOSPHOROUS 3.4 mg/dL (2.5-4.9); SGOT/AST 23 U/L (15-37); SGPT/ALT 11 U/L (13-61)
[2024-02-24] MEDS: ACETYLCYSTEINE 20% 200MG/ML 4 ML VIAL *FOR ORAL / INH USE ONLY NEB SCH (11:50)
[2024-02-24 11:51] LABS: BILIRUBIN,TOTAL 0.8 mg/dL (0.2-1); TOT PROT 6.6 g/dl (6.4-8.2)
[2024-02-24 11:53] LABS: ALK PHOS 51 U/L (45-117)
[2024-02-24] MEDS: CARVEDILOL 6.25 MG TABLET (FP) PO SCH (12:32)
[2024-02-24] MEDS: LOSARTAN POTASSIUM 25 MG TABLET PO SCH (12:33)
[2024-02-24] MEDS: METOPROLOL TARTRATE 50 MG TABLET (FP) PO SCH (12:33)
[2024-02-24] MEDS: KCL 10 MEQ IVPB 10 MEQ/100 ML INFUS.BAG IVPB SCH (18:23)
[2024-02-24] MEDS: POTASSIUM CHLORIDE ORAL LIQUID 20 MEQ/15 ML PO ONE (20:09)
[2024-02-24] MEDS: ALBUTEROL SO4 0.083% IH SOL 2.5 MG/3 ML VIAL.NEB. NEB PRN (20:40)
[2024-02-24] MEDS ORDERED: ALBUTEROL SO4 0.083% IH SOL 2.5 MG/3 ML VIAL.NEB. NEB SCH (22:00)
[2024-02-24] MEDS ORDERED: ATORVASTATIN CA 40 MG TABLET (FP) PO SCH (22:00)
[2024-02-25] MEDS: PIPERACILLIN/TAZOB 3.375 GM 3.375 GM in DEXTROSE 5%-WATER - 50 ML IVPB SCH (02:25)
[2024-02-25 08:19] LABS: BASO % 0.1 % (0-2.0); HEMATOCRIT 36.4 % (35.4-49); HEMOGLOBIN 12.2 GM/dL (11.7-16.9); LYMPH % 10.6 % (8-40); MCH 29.6 pg (25.7-33.7); MCHC 33.4 g/dl (32.0-35.9); MEAN CELL VOLUME 88.6 fl (80-96); MONO % 8.4 % (3.8-10.2); NEUT % 80.9 % (42.8-82.8); PLATELET COUNT 425 10^3/uL (134-434); RBC 4.11 M/mm3 (4.00-5.60); RDW 13.8 % (11.9-15.9); WHITE BLOOD COUNT 10.1 K/mm3 (4.0-10.0)
[2024-02-25 08:35] LABS: CHLORIDE 101 mmol/L (98-107); POTASSIUM 3.8 mmol/L (3.5-5.1); SODIUM 137 mmol/L (136-145)
[2024-02-25 08:40] LABS: ANION GAP 12 mmol/L (4-13); CALCIUM 9.1 mg/dL (8.5-10.1); CO2 25 mmol/L (21-32)
[2024-02-25 08:41] LABS: MAGNESIUM 1.7 mg/dL (1.8-2.4)
[2024-02-25 08:44] LABS: ALBUMIN 2.9 g/dl (3.4-5.0); BLOOD UREA NITROGEN 15.3 mg/dL (7-18); GLUCOSE,RANDOM 78 mg/dL (74-106); SGOT/AST 16 U/L (15-37); SGPT/ALT 9 U/L (13-61)
[2024-02-25 08:45] LABS: PHOSPHOROUS 3.1 mg/dL (2.5-4.9); TOT PROT 6.4 g/dl (6.4-8.2)
[2024-02-25 08:47] LABS: BILIRUBIN,TOTAL 0.6 mg/dL (0.2-1); CHOLESTEROL 225 mg/dL (50-200); LDL CHOLESTEROL (ONLY SJRH) 124 mg/dL (5-100)
[2024-02-25 08:48] LABS: ALK PHOS 45 U/L (45-117); HDL CHOLESTEROL 78 mg/dL (40-60)
[2024-02-25 09:04] LABS: CREATININE < 0.2 mg/dL (0.55-1.3)
[2024-02-25] MEDS ORDERED: predniSONE 10 MG TABLET (UD) PO SCH (10:00)
[2024-02-25] MEDS: ENOXAPARIN NA (PORCINE) 30 MG/0.3 ML DISP.SYRIN SQ SCH (10:10)
[2024-02-25] MEDS: methylPREDNISolone NA SUCC 40 MG/1 ML VIAL IVPUSH SCH (10:11)
[2024-02-25] MEDS: MAGNESIUM 2GM/50ML STERILE WATER IVPB IVPB ONE (10:11)
[2024-02-25] MEDS: ACETAMINOPHEN 1000 MG/100 ML BAG IVPB ONE ×2 (12:30→13:18)
[2024-02-25 14:33] VITALS: BMI 14.2
[2024-02-25 15:17] VITALS: BP 115/88; PULSE 87; RESP 18; TEMP 97.9
== END 2024-02-25 17:00 | disposition home or self-care (01) | DRG 137 ==
LOC: JER 17:44 → JERBED 21:58 → J4W 02-24 17:51
PROVIDERS: ADMIT Internal Medicine; ATTEND Internal Medicine
DX: J69.0 Pneumonitis due to inhalation of food and vomit (principal); E43 Unspecified severe protein-calorie malnutrition; J96.11 Chronic respiratory failure with hypoxia; R53.2 Functional quadriplegia; J96.12 Chronic respiratory failure with hypercapnia; G71.01 Duchenne or Becker muscular dystrophy; I24.89 Other forms of acute ischemic heart disease; E16.2 Hypoglycemia, unspecified
CPT/HCPCS: 0241U-QW; 36415; 36600; 71045-TC-FY; 71275-TC; 80053; 80061; 82803; 82962; 83036; 83605; 83735; 83880; 84100; 84484; 85025; 85027; 87040; 87081; 87651; 87899; 93005; 93010; 93306-TC; 94640; 99285-25; J0131; Q9967